=== PATIENT | female | born 1955 | race Caucasian/White ===

== ENCOUNTER → 2022-10-27 13:27 | Outpatient (BNVA) | payer OTHER, SELFPAY | PROVIDERS: PCP Nurse Practitioner Adult Health; Visit Provider Psychiatry & Neurology Neurology | DX: Z13.89 Encounter for screening for other disorder (principal) ==

== ENCOUNTER → 2022-12-30 09:27 | Outpatient (BNVA) | payer OTHER, SELFPAY | PROVIDERS: PCP Nurse Practitioner Adult Health; Visit Provider Nurse Practitioner Family | DX: R06.83 Snoring (principal); R06.81 Apnea, not elsewhere classified; F09 Unspecified mental disorder due to known physiological condition; R51.9 Headache, unspecified ==

== ENCOUNTER 2024-03-09 09:22 | Outpatient (AMB) | payer OTHER, SELFPAY ==
--- NOTE | 2024-03-09 09:59 | MHC.OFFVIS ---
Vital Signs 03/09/24 10:01 Height 5 ft 2 in Weight 206 lb BMI 37.7 BP 144/92 H Blood Pressure Location Rt brachial Position Sitting Pulse 82 Pulse Source Pulse Oximeter Pulse Oximetry (%) 96 Oxygen Delivery Method Room Air Intake Visit Reasons: Follow up Intake Note: Patients presents for follow up. patient did not attend sleep study refusing to have it done Allergies cephalexin Allergy (Unknown, Verified 03/09/24 10:02) Unknown Medication List - Last Reconciled 03/09/24 by MARY Conway acetaminophen (Tylenol Extra Strength) 500 mg PO Q6H PRN albuterol sulfate 90 mcg/actuation 2 puffs inhalation Q6H PRN albuterol sulfate 90 mcg/actuation (Ventolin HFA) 2 puffs inhalation Q6H PRN ammonium lactate 12% 1 appl topical DAILY aspirin 81 mg PO DAILY carboxymethylcellulose sodium 0.5% (Refresh Tears) 1 drp ophthalmic (eye) BID cetirizine (All Day Allergy (cetirizine)) 10 mg PO DAILY PRN ciclopirox 1% 5 mL topical 2XW diclofenac sodium 1% (Arthritis Pain (diclofenac)) 2 grams topical QID fluticasone furoate 50 mcg/actuation inhalation fluticasone propion-salmeterol 250-50 mcg/dose (Advair Diskus) 1 inh inhalation BID hydralazine 10 mg PO BID levothyroxine 25 mcg PO DAILY melatonin 3 mg PO BEDTIME PRN 30 days nebulizers (Compact Compressor Nebulizer) As directed omega-3 fatty acids 500 mg PO DAILY omeprazole 20 mg PO DAILY rosuvastatin 10 mg PO DAILY sennosides (senna) 8.6 mg PO DAILY sodium chloride 3% (Saline Nasal Mist) sprays intranasal spironolacton-hydrochlorothiaz 25-25 mg (Aldactazide) 1 tab PO DAILY valsartan 160 mg PO DAILY HPI Comments Details: 68-yr-old female presents for f/u visit. Pt is accompanied by her dtr, Jose L ([place]). Pt denies any significant interval medical changes. Pt reports her headaches are a little better. She states when her headache starts, she takes a nap, and then feels better. She continues to have STM lapses- maybe these have progressed a little bit since this started 2-3 yrs ago. She lives alone. She may forget something on the stove. She may leave the kitchen when cooking. She does walk daily w/ a friend on the [address] [place]. She is not interested in having a neuro-psych eval. Her mother had AD in her 80s. She did decline the HST. Previous HST showed mild ROSI. She states she calderon sto sleep flat on he right side unless she is sleeping in front of the TV. Head CT 2021- showed Dtr notes that pt has been overwhelmed w/ medical appointments since her skin cancer dx/tx. [facility] Medical History (Updated 03/09/24 @ 17:21 by MARY Conway) Generalized headaches Mild cognitive disorder Basal cell carcinoma Witnessed apneic spells Snoring Hypothyroidism Kidney stones Hyperlipidemia HTN (hypertension) Obesity Asthma Surgical History H/O thyroidectomy Family History Father Prostate CA Social History Alcohol intake: never Patient Tobacco Use Status: Never used Tobacco Physical Exam Vital Signs: Last Vital Signs Pulse 82 03/09/24 10:01 BP 144/92 H 03/09/24 10:01 Pulse Ox 96 03/09/24 10:01 Oxygen Delivery Method Room Air 03/09/24 10:01 BMI result Body Mass Index 37.7 Const General: cooperative and no acute distress Orientation/consciousness: patient oriented x3 Resp Effort & Inspection: normal respiratory effort and able to speak in complete sentences Neuro General: patient oriented x3 Cranial nerves: Yes CN's II-XII intact bilaterally Cognition (Neuro): normal cognition Psych Appearance: grossly normal Mental Status: mental status grossly normal Speech and movement: Normal speech and movement present Affect: normal affect Attitude: cooperative Assessment & Plan Assessment & Plan (1) Generalized headaches: Comment: cervicogenic - stable now Code(s): R51.9 - Headache, unspecified Category: Medical (2) Mild cognitive disorder: Comment: Patient did well on MMSE today - her cognitive issues are likely related to untreated sleep apnea, vascular risk factors etc Code(s): F09 - Unspecified mental disorder due to known physiological condition Category: Medical (3) Mild obstructive sleep apnea: Code(s): G47.33 - Obstructive sleep apnea (adult) (pediatric) Category: Medical Plan Start Namenda ER 7mg qd x's 1 month, then increase to 14mg qd x's 1 month, then 21mg qd x's 1 month, then 28mg qd. Continue to engage in regular social and cognitively stimulating activities. Continue to take daily walks. Monitor sleep- pt has declined to do f/u HST, she is not interested in trying PAP tx, and states she can not sleep w/ head elevated. Monitor headaches. Offered neuro-psych evaluation- however pt declines at this time. Follwo-up in 6months or sooner prn. Medications: New memantine Namenda ER 7mg qd x's 1 month, then increase to 14mg qd x's 1 month, then 21mg qd x's 1 month, then 28mg qd. orally daily; 30 days 30 ea 0RF Coding Level of Care Code Est Pt Level 4 (70240) Diagnoses Generalized headaches R51.9 Mild cognitive disorder F09 Mild obstructive sleep apnea G47.33
[2024-03-09 10:01] VITALS: BP 144/92; PULSE 82; O2SAT 96; BMI 37.7
== END 2024-03-09 10:41 | disposition home or self-care (01) ==
PROVIDERS: PCP Nurse Practitioner Adult Health; Visit Provider Nurse Practitioner Family
DX: R41.89 Other symptoms and signs involving cognitive functions and awareness (principal); G44.86 Cervicogenic headache; G47.33 Obstructive sleep apnea (adult) (pediatric)
CPT/HCPCS: 99214

== ENCOUNTER → 2024-03-09 09:22 | Outpatient (BNVA) | payer OTHER, SELFPAY | PROVIDERS: PCP Nurse Practitioner Adult Health; Visit Provider Nurse Practitioner Family ==